=== PATIENT | male | born 1980 | race Caucasian/White ===

== ENCOUNTER 2019-05-07 15:45 | Emergency (ER) | payer OTHER ==
[~2019-05-07] VITALS: Ht 170.2 cm; Wt 99.8 kg
[2019-05-07 15:47] VITALS: Ht 170.2 cm; Wt 99.8 kg
[2019-05-07 17:36] VITALS: BP 136/91
== END 2019-05-07 17:36 | disposition other institution (70) ==
LOC: ED 15:45
DX: Z02.89 Encounter for other administrative examinations (principal)